=== PATIENT | female | born 1955 | race Caucasian/White ===

== ENCOUNTER 2016-11-25 12:11 | Day surgery (SDC) | payer OTHER ==
--- NOTE | ~2016-11-25 | EGD ---
EGD REPORT [facility] [address] [place]. [address] NAME: IRENE OH : [birth year] STATUS : REG [facility] [place] PAT#: [id number] AGE: 61 ADM/REG DATE : 11/25/16 MR#: [id number] REPORT SERV DATE: 11/25/16 DICTATED BY: RICK OWEN DATE: 11/25/16 REPORT STATUS : Draft [facility]ANS[facility]ED [facility]: [facility] DATE: 11/25/16 Endoscopy Center Patient Name: Irene Oh Date of : 1955 Attending MD: RICK OWEN, Procedure Date No Time: 11/25/2016 Procedure: Colonoscopy Indications: High risk colon cancer surveillance: Personal history of colonic polyps Referring MD: Laura Lira Medicines: Monitored Anesthesia Care Complications: No immediate complications. Estimated blood loss: None. Procedure: Pre-Anesthesia Assessment: - ASA Grade Assessment: III - A patient with severe systemic disease. After I obtained informed consent, the scope was passed under direct vision. Throughout the procedure, the patient's blood pressure, pulse, and oxygen saturations were monitored continuously. The [facility] H190L [id number] was introduced through the anus and advanced to the cecum, identified by appendiceal orifice and ileocecal valve. The colonoscopy was performed without difficulty. The patient tolerated the procedure well. The quality of the bowel preparation was good. Findings: The perianal and digital rectal examinations were normal. Multiple diverticula were found in the sigmoid colon and in the descending colon. Four sessile polyps were found in the descending colon. The polyps were 4 to 6 mm in size. These polyps were removed with a cold snare. Resection and retrieval were complete. Verification of patient identification for the specimen was done. Estimated blood loss was minimal. Multiple sessile polyps were found in the sigmoid colon. The polyps were 10 to 15 mm in size. These polyps were removed with a hot snare. Resection and retrieval were complete. Verification of patient identification for the specimen was done. Estimated blood loss was minimal. Multiple sessile polyps were found in the sigmoid colon. The polyps were 4 to 7 mm in size. These polyps were removed with a cold snare. Resection and retrieval were complete. Verification of patient identification for the specimen was done. Estimated blood loss was minimal. The exam was otherwise without abnormality on direct and retroflexion EGD REPORT [place] [id number] [facility], [place]. [address] NAME: IRENE OH : [birth year] STATUS : REG [facility] [place] PAT#: [id number] AGE: 61 ADM/REG DATE : 11/25/16 MR#: [id number] REPORT SERV DATE: 11/25/16 DICTATED BY: RICK OWEN DATE: 11/25/16 REPORT STATUS : Draft TRANSCRIBED BY: [employer] DATE: 11/25/16 views. Impression: - Diverticulosis in the sigmoid colon and in the descending colon. - Four 4 to 6 mm polyps in the descending colon. Resected and retrieved. - Multiple 10 to 15 mm polyps in the sigmoid colon. Resected and retrieved. - Multiple 4 to 7 mm polyps in the sigmoid colon. Resected and retrieved. - The examination was otherwise normal on direct and retroflexion views. Recommendation: - Patient has a contact number available for emergencies. The signs and symptoms of potential delayed complications were discussed with the patient. Return to normal activities tomorrow. Written discharge instructions were provided to the patient. - Return to previous diet. - Continue present medications. - Await pathology results. - Repeat colonoscopy for surveillance based on pathology results. Procedure Code(s): --- Professional --- 57947, Colonoscopy, flexible, proximal to splenic flexure; with removal of tumor(s), polyp(s), or other lesion(s) by snare technique Diagnosis Code(s): --- Professional --- K57.30, Diverticulosis of large intestine without perforation or abscess without bleeding D12.5, Benign neoplasm of sigmoid colon D12.4, Benign neoplasm of descending colon Z86.010, Personal history of colonic polyps CPT copyright 2013 [employer]. All rights reserved. The codes documented in this report are preliminary and upon operator control room review may be revised to meet current compliance requirements. RICK OWEN, 11/25/2016 2:03 PM Number of Addenda: 0 EGD REPORT [facility] [address] [place]. [address] NAME: IRENE OH : [birth year] STATUS : REG [facility] [place] PAT#: [id number] AGE: 61 ADM/REG DATE : 11/25/16 MR#: [id number] REPORT SERV DATE: 11/25/16 DICTATED BY: RICK OWEN DATE: 11/25/16 REPORT STATUS : Draft TRANSCRIBED BY: [employer] DATE: 11/25/16 Note Initiated On: 11/25/2016 1:16 PM Scope Withdrawal Time 0 hours 21 minutes 18 seconds [address] [id number]
--- NOTE | ~2016-11-25 | EGD ---
EGD REPORT [facility] [address] [place]. [address] NAME: IRENE OH : [birth year] STATUS : [place] [facility] [place] PAT#: [id number] AGE: 61 ADM/REG DATE : 11/25/16 MR#: [id number] REPORT SERV DATE: 11/25/16 DICTATED BY: RICK OWEN DATE: 11/25/16 REPORT STATUS : Draft [facility]: [facility] DATE: 11/25/16 Endoscopy Center Patient Name: Irene Oh Date of : 1955 Attending MD: RICK OWEN, Procedure Date No Time: 11/25/2016 Procedure: Upper GI endoscopy Indications: Heartburn Referring MD: Laura Lira Medicines: Monitored Anesthesia Care Complications: No immediate complications. Estimated blood loss: None. Procedure: Pre-Anesthesia Assessment: - ASA Grade Assessment: III - A patient with severe systemic disease. After obtaining informed consent, the endoscope was passed under direct vision. Throughout the procedure, the patient's blood pressure, pulse, and oxygen saturations were monitored continuously. The [facility]IF H190 [id number] was introduced through the mouth, and advanced to the second part of duodenum. The upper GI endoscopy was accomplished without difficulty. The patient tolerated the procedure well. Findings: LA Grade B (one or more mucosal breaks greater than 5 mm, not extending between the tops of two mucosal folds) esophagitis with no bleeding was found at the gastroesophageal junction. Biopsies were taken with a cold forceps for histology. Verification of patient identification for the specimen was done. Estimated blood loss was minimal. The exam of the esophagus was otherwise normal. Patchy moderate inflammation characterized by congestion (edema), erosions and erythema was found in the gastric antrum. Biopsies were taken with a cold forceps for histology. Verification of patient identification for the specimen was done. Estimated blood loss was minimal. The exam of the stomach was otherwise normal. The cardia and gastric fundus were normal on retroflexion. The examined duodenum was normal. Impression: - LA Grade B reflux esophagitis. Biopsied. - Gastritis. Biopsied. - Normal examined duodenum. Recommendation: - Patient has a contact number available for emergencies. The signs and symptoms of potential delayed EGD REPORT [address] [address] NAME: IRENE OH : [birth year] STATUS : [place] [facility] [place] PAT#: [id number] AGE: 61 ADM/REG DATE : 11/25/16 MR#: [id number] REPORT SERV DATE: 11/25/16 DICTATED BY: RICK OWEN DATE: 11/25/16 REPORT STATUS : Draft TRANSCRIBED BY: [employer] DATE: 11/25/16 complications were discussed with the patient. Return to normal activities tomorrow. Written discharge instructions were provided to the patient. - Return to previous diet. - Continue present medications. - Await pathology results. - Use Prilosec (omeprazole) 40 mg PO daily. Procedure Code(s): --- Professional --- 07891, Esophagogastroduodenoscopy, flexible, transoral; with biopsy, single or multiple Diagnosis Code(s): --- Professional --- K21.0, Gastro-esophageal reflux disease with esophagitis K29.70, Gastritis, unspecified, without bleeding R12, Heartburn CPT copyright 2013 [employer]. All rights reserved. The codes documented in this report are preliminary and upon certified medical coder review may be revised to meet current compliance requirements. RICK OWEN, 11/25/2016 2:00 PM Number of Addenda: 0 Note Initiated On: 11/25/2016 1:19 PM Scope Withdrawal Time 0 hours 0 minutes 0 seconds [address] [id number]
[~2016-11-25 12:11] MED LIST: HALCION0.25 MG PO; HYDROCHLOROT12.5 MG PO; PAXIL40 MG PO; PRILO PO; TOPXL100 PO
== END 2016-11-25 23:59 | disposition home or self-care (01) ==
LOC: DMU 12:11
PROVIDERS: Internal Medicine Gastroenterology
PROC: 0DB48ZX Excision of Esophagogastric Junction, Via Natural or Artificial Opening Endoscopic, Diagnostic (ICD-10-PCS; 2016-11-25)
PROC: 0DB68ZX Excision of Stomach, Via Natural or Artificial Opening Endoscopic, Diagnostic (ICD-10-PCS; 2016-11-25)
PROC: 0DBM8ZZ Excision of Descending Colon, Via Natural or Artificial Opening Endoscopic (ICD-10-PCS; principal; 2016-11-25 14:00)
PROC: 0DBN8ZZ Excision of Sigmoid Colon, Via Natural or Artificial Opening Endoscopic (ICD-10-PCS; 2016-11-25 14:00)
DX: Z12.11 Encounter for screening for malignant neoplasm of colon (principal); K63.5 Polyp of colon; K21.0 Gastro-esophageal reflux disease with esophagitis; K57.30 Diverticulosis of large intestine without perforation or abscess without bleeding; Z86.010 Personal history of colon polyps; K29.70 Gastritis, unspecified, without bleeding; R12 Heartburn; I10 Essential (primary) hypertension; F17.210 Nicotine dependence, cigarettes, uncomplicated
CPT/HCPCS: 88305